=== PATIENT | female | born 1995 | race Caucasian/White ===

== ENCOUNTER 2024-11-09 15:54 | Emergency (ER) | payer BC ==
[~2024-11-09] VITALS: Ht 162.6 cm; Wt 50.8 kg
[2024-11-09 16:20] LABS: PLATELET COUNT (AUTO) 364 K/uL (150-450); RED BLOOD CELL COUNT(AUTO) 4.77 MIL/uL (4.0-5.2); RED CELL DISTRIBUTION WIDTH 12.6 % (11.5-15.0); WHITE BLOOD COUNT (AUTO) 6.0 K/uL (4.3-11.0)
[2024-11-09 16:27] LABS: CALCIUM, SERUM 9.3 mg/dL (8.5-10.1); CREATININE 0.7 mg/dL (0.6-1.3); SODIUM SERUM 138.0 mmol/L (136-145); UREA NITROGEN, BLOOD 13.0 mg/dL (7-18)
[2024-11-09 17:36] VITALS: BP 130/88; TEMP 98; O2SAT 99
== END 2024-11-09 17:36 | disposition home or self-care (01) ==
LOC: ER 16:01
DX: R00.2 Palpitations (principal); R07.9 Chest pain, unspecified
CPT/HCPCS: 36415; 71045-TC; 80048-TC; 85025-TC